=== PATIENT | male | born 1985 | race Caucasian/White ===

== ENCOUNTER 2019-06-04 10:59 | Inpatient (IN) | payer OTHER, SELFPAY ==
[2019-06-04] VITALS (10 sets, daily range): BP systolic 108–144; BP diastolic 55–86; PULSE 66–104; RESP 14–18; TEMP 36.9; O2SAT 96–100; BMI 26.4; BMI 26.2
--- NOTE | 2019-06-04 11:21 | ED.GENADULT ---
HPI - General Adult <Erin Jarrett PA-C - Last Filed: 06/04/19 20:31> General Chief complaint: Diabetic Problem Stated complaint: Hyperglycemia Time Seen by Provider: 06/04/19 11:21 Source: patient and EMS Mode of arrival: EMS Limitations: no limitations History of Present Illness HPI narrative: This 33-year-old male was sent to ED by [facility] physicians after finding elevated blood sugar on lab work. He states that he was seen at [facility] on Saturday as he has had about a 6 week history of urinary frequency, exercise intolerance/easily fatigued, dry mouth and thirst, and intermittent blurred vision. He states that he thinks he has lost 25-30 lb during that time frame, usual weight 225-230. He states that he does get some heartburn if he eats sweets, otherwise denies any chest pain. He does not feel frankly short of breath but notes exercise intolerance. He denies any abdominal pain, states he had 1 episode of vomiting on empty stomach, feels better on a full stomach. He denies any recent illnesses aside from this and states he is healthy without any known medical history. He notes that he is living near [facility] in a hotel so not able to cook and has been eating out more, more difficult to eat a healthy diet. He states he does not have any family history of diabetes aside from a single grandmother who developed this when elderly. Related Data Home Medications Medication Instructions Recorded Confirmed No Known Home Medications 06/04/19 06/04/19 Previous Rx's Medication Instructions Recorded alcohol swabs [Alcohol Wipes] 1 pad TOP QID 30 Days #100 each 06/06/19 blood sugar diagnostic [FreeStyle #150 each 06/06/19 Lite Strips] blood-glucose meter [FreeStyle #1 each 06/06/19 Lite Meter] glucose 4 gram PO Q15M PRN 30 Days #30 tab 06/06/19 insulin glargine [Lantus Solostar 20 unit SUBCUT BEDTIME 30 Days #6 06/06/19 U-100 Insulin] ml lancets #50 each 06/06/19 metformin 1,000 mg PO BID 30 Days #60 tab 06/06/19 pen needle, diabetic #30 each 06/06/19 Allergies Allergy/AdvReac Type Severity Reaction Status Date / Time cefaclor [From [facility]] Allergy Verified 06/04/19 11:05 Review of Systems <Erin Jarrett PA-C - Last Filed: 06/04/19 20:31> Review of Systems ROS Unobtainable: All systems reviewed & are unremarkable except as noted in HPI and below Patient History <Erin Jarrett PA-C - Last Filed: 06/04/19 20:31> Medical History (Updated 06/05/19 @ 00:20 by Stephenie Arrieta DO) Prehypertension (Acute) Surgical History Status post wisdom tooth extraction (Resolved) Family History (Updated 06/05/19 @ 00:22 by Stephenie Arrieta DO) Father Hypertension Mother Healthy adult Sister Autoimmune disease Sister Healthy adult Social History (Updated 06/04/19 @ 11:54 by Erin Jarrett PA-C) household members: spouse Smoking Status: Never smoker Smoking Status: Never smoker alcohol intake frequency: a few times a week Substance Use Type: does not use Exam <Erin Jarrett PA-C - Last Filed: 06/04/19 20:31> Narrative Exam Narrative: GENERAL APPEARANCE: Patient sitting comfortably, in no distress. HEENT: PERRL, EOMI, normal oropharynx NECK: Supple, no masses LUNGS: Clear to auscultation bilaterally. HEART: Rate and rhythm regular, normal S1 and S2, no S3 or S4. ABDOMEN: Soft, nontender, nondistended, bowel sounds present x 4 quadrants, no masses palpable, EXTREMITIES: No edema, no calf tenderness DERMATOLOGIC: No exanthem NEUROLOGIC: Alert and oriented with normal speech and coordination Initial Vital Signs Initial Vital Signs: Vital Signs Pulse Rate 66 06/04/19 11:00 Respiratory Rate 14 06/04/19 11:00 Blood Pressure 108/55 L 06/04/19 11:00 Pulse Oximetry 96 06/04/19 11:00 <Brenda Koehler MD - Last Filed: 06/13/19 07:17> Initial Vital Signs Initial Vital Signs: Vital Signs Pulse Rate 66 06/04/19 11:00 Respiratory Rate 14 06/04/19 11:00 Blood Pressure 108/55 L 06/04/19 11:00 Pulse Oximetry 96 06/04/19 11:00 Course <Erin Jarrett PA-C - Last Filed: 06/04/19 20:31> Course Additional Information: History, exam and lab findings reviewed with attending Dr. Koehler who has also seen patient, agrees with plan for treatment and admission. I spoke with Dr. Arrieta, neon technician hospitalist who agrees to admit patient to ICU tele for further treatment. Orders Ordered: Discontinued Medications Acetaminophen (Tylenol) 650 mg PO Q4HR PRN PRN Reason: Fever/Mild Pain (1-3) Bisacodyl (Dulcolax) 10 mg SC DAILY PRN PRN Reason: Constipation Dextrose (D50w) 25 gm IV PRN PRN; Protocol PRN Reason: Hypoglycemia Docusate Sodium (Colace) 100 mg PO BID PRN PRN Reason: Constipation Last Admin: 06/06/19 08:15 Dose: 100 mg Documented by: EDUARDALANTO Sodium Chloride (Normal Saline 0.9%) 1,000 mls @ 1,000 mls/hr IV BOLUS ONE Stop: 06/04/19 12:20 Last Infusion: 06/04/19 12:39 Dose: 0 mls/hr Documented by: Admin: 06/04/19 11:37 Dose: 1,000 mls/hr Documented by: SCANAPO Sodium Chloride (Normal Saline 0.9%) 1,000 mls @ 1,000 mls/hr IV BOLUS ONE Stop: 06/04/19 13:40 Last Infusion: 06/04/19 13:54 Dose: 0 mls/hr Documented by: Admin: 06/04/19 13:00 Dose: 1,000 mls/hr Documented by: SCANAPO INSULIN DRIP PREMIX (Myxredlin Drip Premix) 100 unit in 100 mls @ 6 mls/hr IV TITRATE TAINA; Protocol Last Titration: 06/04/19 14:28 Dose: 6 mls/hr Documented by: Admin: 06/04/19 12:56 Dose: 6 mls/hr Documented by: SCANAPO Potassium Chloride 20 meq/ (Sodium Chloride) 260 mls @ 130 mls/hr IV NOW ONE Stop: 06/04/19 14:42 Last Infusion: 06/04/19 16:01 Dose: 0 mls/hr Documented by: JEANINE Cosigned by: JOSE MANUEL Infusion: 06/04/19 14:27 Dose: 130 mls/hr Documented by: RAMO Cosigned by: ATTILA Admin: 06/04/19 13:00 Dose: 130 mls/hr Documented by: RAMO Clancyigned by: ATTILA INSULIN DRIP PREMIX (Myxredlin Drip Premix) 100 unit in 100 mls @ 6 mls/hr IV TITRATE TAINA; Protocol Last Titration: 06/04/19 22:16 Dose: 0 ml/hr, 0 mls/hr Documented by: Titration: 06/04/19 20:58 Dose: 0 ml/hr, 0 mls/hr Documented by: Titration: 06/04/19 17:00 Dose: 0 ml/hr, 0 mls/hr Documented by: Titration: 06/04/19 16:01 Dose: 7 ml/hr, 7 mls/hr Documented by: Admin: 06/04/19 15:00 Dose: 6 ml/hr, 6 mls/hr Documented by: JEANINE Potassium Chloride 40 meq/ (Sodium Chloride) 520 mls @ 130 mls/hr IV NOW ONE Stop: 06/04/19 14:33 Last Admin: 06/04/19 15:51 Dose: 130 mls/hr Documented by: JEANINE Cosigned by: JOSE MANUEL Dextrose/Sodium Chloride (Dextrose 5%-0.45% Ns) 1,000 mls @ 131 mls/hr IV CONT TAINA Last Infusion: 06/05/19 02:24 Dose: 0 mls/hr Documented by: Infusion: 06/04/19 21:00 Dose: 131 mls/hr Documented by: Infusion: 06/04/19 19:02 Dose: 0 mls/hr Documented by: Infusion: 06/04/19 18:08 Dose: 131 mls/hr Documented by: Infusion: 06/04/19 17:00 Dose: 0 mls/hr Documented by: Admin: 06/04/19 15:30 Dose: 131 mls/hr Documented by: JEANINE Dextrose (D10w) 1,000 mls @ 175 mls/hr IV CONT TAINA Stop: 06/04/19 23:59 Last Infusion: 06/04/19 18:08 Dose: 0 mls/hr Documented by: Admin: 06/04/19 17:00 Dose: 175 mls/hr Documented by: JEANINE Potassium Chloride 40 meq/ (Sodium Chloride) 520 mls @ 130 mls/hr IV NOW ONE Stop: 06/05/19 01:37 Last Infusion: 06/05/19 07:08 Dose: 0 mls/hr Documented by: DK Cosigned by: LIZBETH Admin: 06/04/19 21:57 Dose: 130 mls/hr Documented by: JEANINE Cosigned by: JOSE MANUEL Potassium Chloride 40 meq/ (Sodium Chloride) 520 mls @ 130 mls/hr IV NOW ONE Stop: 06/05/19 04:00 Last Infusion: 06/05/19 07:06 Dose: 0 mls/hr Documented by: DK Cosigned by: LIZBETH Admin: 06/05/19 02:24 Dose: 130 mls/hr Documented by: DK Cosigned by: LIZBETH Potassium Chloride 40 meq/ (Sodium Chloride) 520 mls @ 130 mls/hr IV NOW ONE Stop: 06/05/19 10:03 Last Admin: 06/05/19 07:00 Dose: 130 mls/hr Documented by: DK Cosigned by: LIZBETH Potassium Chloride 40 meq/ (Sodium Chloride) 520 mls @ 130 mls/hr IV NOW ONE Stop: 06/05/19 23:36 Last Infusion: 06/06/19 00:59 Dose: 100 mls/hr Documented by: SHER Cosigned by: YOSEPH Admin: 06/05/19 19:57 Dose: 130 mls/hr Documented by: JEANINE Cosigned by: JOSE MANUEL Potassium Chloride 40 meq/ (Sodium Chloride) 520 mls @ 130 mls/hr IV NOW ONE Stop: 06/06/19 04:59 Last Infusion: 06/06/19 06:23 Dose: 100 mls/hr Documented by: SHER Cosigned by: YOSEPH Admin: 06/06/19 00:59 Dose: 130 mls/hr Documented by: SHER Cosigned by: YOSEPH Influenza Virus Vaccine (Flu Vaccine) 0.5 ml IM .ONCE ONE Stop: 06/05/19 09:01 Last Admin: 06/05/19 08:17 Dose: 0.5 ml Documented by: EUSEBIA Insulin Aspart (Novolog Flexpen) 0 unit SUBCUT ACHS TAINA; Protocol Last Admin: 06/06/19 12:01 Dose: 2 unit Documented by: NIMO Cosigned by: EDDIE Admin: 06/06/19 08:39 Dose: 2 unit Documented by: NIMO Cosigned by: DEDIE Admin: 06/05/19 21:37 Dose: 1 unit Documented by: JEANINE Cosigned by: JOSE MANUEL Admin: 06/05/19 17:06 Dose: 2 unit Documented by: JEANINE Cosigned by: JOSE MANUEL Admin: 06/05/19 12:13 Dose: 3 unit Documented by: EUSEBIA Cosigned by: ZAID Admin: 06/05/19 08:17 Dose: 2 unit Documented by: EUSEBIA Cosigned by: ZAID Admin: 06/04/19 20:56 Dose: 1 unit Documented by: JEANINE Cosigned by: ROLAND Insulin Glargine (Lantus Solostar (Pen)) 10 unit SUBCUT BEDTIME [facility] Last Admin: 06/04/19 20:59 Dose: 10 unit Documented by: JEANINE Cosigned by: ANNABELOS Insulin Glargine (Lantus Solostar (Pen)) 15 unit SUBCUT BEDTIME TAINA Insulin Glargine (Lantus Solostar (Pen)) 20 unit SUBCUT BEDTIME [facility] Last Admin: 06/05/19 21:38 Dose: 20 unit Documented by: JEANINE Cosigned by: JOSE MANUEL Insulin Human Regular (Humulin R) 10 unit SUBCUT NOW ONE Stop: 06/05/19 12:16 Last Admin: 06/05/19 12:31 Dose: 10 unit Documented by: EUSEBIA Cosigned by: ZAID Metformin HCl (Glucophage) 1,000 mg PO 0800,1700 [facility] Last Admin: 06/06/19 08:17 Dose: 1,000 mg Documented by: Admin: 06/05/19 17:04 Dose: 1,000 mg Documented by: Admin: 06/05/19 08:17 Dose: 1,000 mg Documented by: EUSEBIA Metoclopramide HCl (Reglan) 10 mg IV Q6HR PRN PRN Reason: Nausea And Vomiting Ondansetron HCl (Zofran) 4 mg IV Q4HR PRN PRN Reason: Nausea And Vomiting Polyethylene Glycol (Miralax) 17 gm PO DAILY PRN PRN Reason: Constipation Last Admin: 06/06/19 08:15 Dose: 17 gm Documented by: ELVIETO Potassium Chloride (Klor-Con M20) 20 meq PO NOW ONE Stop: 06/04/19 21:40 Last Admin: 06/04/19 21:57 Dose: 20 meq Documented by: JEANINE Potassium Chloride (Klor-Con M20) 40 meq PO NOW ONE Stop: 06/05/19 06:03 Last Admin: 06/05/19 06:48 Dose: 40 meq Documented by: LIZBETH Potassium Chloride (Klor-Con M20) 40 meq PO NOW ONE Stop: 06/05/19 19:40 Last Admin: 06/05/19 19:54 Dose: 40 meq Documented by: JEANINE Vital Signs Vital signs: Vital Signs - 8 hr 06/04/19 13:00 Pulse Rate 92 H Blood Pressure [Left Arm] 127/77 Pulse Oximetry 100 <Brenda Koehler MD - Last Filed: 06/13/19 07:17> Orders Ordered: Discontinued Medications Acetaminophen (Tylenol) 650 mg PO Q4HR PRN PRN Reason: Fever/Mild Pain (1-3) Bisacodyl (Dulcolax) 10 mg SC DAILY PRN PRN Reason: Constipation Dextrose (D50w) 25 gm IV PRN PRN; Protocol PRN Reason: Hypoglycemia Docusate Sodium (Colace) 100 mg PO BID PRN PRN Reason: Constipation Last Admin: 06/06/19 08:15 Dose: 100 mg Documented by: EDUARDALANTO Sodium Chloride (Normal Saline 0.9%) 1,000 mls @ 1,000 mls/hr IV BOLUS ONE Stop: 06/04/19 12:20 Last Infusion: 06/04/19 12:39 Dose: 0 mls/hr Documented by: Admin: 06/04/19 11:37 Dose: 1,000 mls/hr Documented by: SCANAPO Sodium Chloride (Normal Saline 0.9%) 1,000 mls @ 1,000 mls/hr IV BOLUS ONE Stop: 06/04/19 13:40 Last Infusion: 06/04/19 13:54 Dose: 0 mls/hr Documented by: Admin: 06/04/19 13:00 Dose: 1,000 mls/hr Documented by: RAMO INSULIN DRIP PREMIX (Myxredlin Drip Premix) 100 unit in 100 mls @ 6 mls/hr IV TITRATE TAINA; Protocol Last Titration: 06/04/19 14:28 Dose: 6 mls/hr Documented by: Admin: 06/04/19 12:56 Dose: 6 mls/hr Documented by: RAMO Potassium Chloride 20 meq/ (Sodium Chloride) 260 mls @ 130 mls/hr IV NOW ONE Stop: 06/04/19 14:42 Last Infusion: 06/04/19 16:01 Dose: 0 mls/hr Documented by: JEANINE Cosigned by: JOSE MANUEL Infusion: 06/04/19 14:27 Dose: 130 mls/hr Documented by: RAMO Cosigned by: ATTILA Admin: 06/04/19 13:00 Dose: 130 mls/hr Documented by: RAMO Cosigned by: ATTILA INSULIN DRIP PREMIX (Myxredlin Drip Premix) 100 unit in 100 mls @ 6 mls/hr IV TITRATE TAINA; Protocol Last Titration: 06/04/19 22:16 Dose: 0 ml/hr, 0 mls/hr Documented by: Titration: 06/04/19 20:58 Dose: 0 ml/hr, 0 mls/hr Documented by: Titration: 06/04/19 17:00 Dose: 0 ml/hr, 0 mls/hr Documented by: Titration: 06/04/19 16:01 Dose: 7 ml/hr, 7 mls/hr Documented by: Admin: 06/04/19 15:00 Dose: 6 ml/hr, 6 mls/hr Documented by: JEANINE Potassium Chloride 40 meq/ (Sodium Chloride) 520 mls @ 130 mls/hr IV NOW ONE Stop: 06/04/19 14:33 Last Admin: 06/04/19 15:51 Dose: 130 mls/hr Documented by: JEANINE Cosigned by: JOSE MANUEL Dextrose/Sodium Chloride (Dextrose 5%-0.45% Ns) 1,000 mls @ 131 mls/hr IV CONT TAINA Last Infusion: 06/05/19 02:24 Dose: 0 mls/hr Documented by: Infusion: 06/04/19 21:00 Dose: 131 mls/hr Documented by: Infusion: 06/04/19 19:02 Dose: 0 mls/hr Documented by: Infusion: 06/04/19 18:08 Dose: 131 mls/hr Documented by: Infusion: 06/04/19 17:00 Dose: 0 mls/hr Documented by: Admin: 06/04/19 15:30 Dose: 131 mls/hr Documented by: JEANINE Dextrose (D10w) 1,000 mls @ 175 mls/hr IV CONT TAINA Stop: 06/04/19 23:59 Last Infusion: 06/04/19 18:08 Dose: 0 mls/hr Documented by: Admin: 06/04/19 17:00 Dose: 175 mls/hr Documented by: JEANINE Potassium Chloride 40 meq/ (Sodium Chloride) 520 mls @ 130 mls/hr IV NOW ONE Stop: 06/05/19 01:37 Last Infusion: 06/05/19 07:08 Dose: 0 mls/hr Documented by: DK Clancyigned by: LIZBETH Admin: 06/04/19 21:57 Dose: 130 mls/hr Documented by: JEANINE Cosigned by: JOSE MANUEL Potassium Chloride 40 meq/ (Sodium Chloride) 520 mls @ 130 mls/hr IV NOW ONE Stop: 06/05/19 04:00 Last Infusion: 06/05/19 07:06 Dose: 0 mls/hr Documented by: DK Cosigned by: LIZBETH Admin: 06/05/19 02:24 Dose: 130 mls/hr Documented by: DK Clancyigned by: LIZBETH Potassium Chloride 40 meq/ (Sodium Chloride) 520 mls @ 130 mls/hr IV NOW ONE Stop: 06/05/19 10:03 Last Admin: 06/05/19 07:00 Dose: 130 mls/hr Documented by: DK Cosigned by: LIZBETH Potassium Chloride 40 meq/ (Sodium Chloride) 520 mls @ 130 mls/hr IV NOW ONE Stop: 06/05/19 23:36 Last Infusion: 06/06/19 00:59 Dose: 100 mls/hr Documented by: SHER Cosigned by: YOSEPH Admin: 06/05/19 19:57 Dose: 130 mls/hr Documented by: JEANINE Cosigned by: JOSE MANUEL Potassium Chloride 40 meq/ (Sodium Chloride) 520 mls @ 130 mls/hr IV NOW ONE Stop: 06/06/19 04:59 Last Infusion: 06/06/19 06:23 Dose: 100 mls/hr Documented by: SHER Cosigned by: YOSEPH Admin: 06/06/19 00:59 Dose: 130 mls/hr Documented by: SHER Clancyigned by: YOSEPH Influenza Virus Vaccine (Flu Vaccine) 0.5 ml IM .ONCE ONE Stop: 06/05/19 09:01 Last Admin: 06/05/19 08:17 Dose: 0.5 ml Documented by: EUSEBIA Insulin Aspart (Novolog Flexpen) 0 unit SUBCUT ACHS TAINA; Protocol Last Admin: 06/06/19 12:01 Dose: 2 unit Documented by: NIMO Cosigned by: EDDIE Admin: 06/06/19 08:39 Dose: 2 unit Documented by: NIMO Cosigned by: EDDIE Admin: 06/05/19 21:37 Dose: 1 unit Documented by: JEANINE Cosigned by: JOSE MANUEL Admin: 06/05/19 17:06 Dose: 2 unit Documented by: JEANINE Cosigned by: JOSE MANUEL Admin: 06/05/19 12:13 Dose: 3 unit Documented by: EUSEBIA Cosigned by: ZAID Admin: 06/05/19 08:17 Dose: 2 unit Documented by: EUSEBIA Cosigned by: ZAID Admin: 06/04/19 20:56 Dose: 1 unit Documented by: JEANINE Cosigned by: ROLAND Insulin Glargine (Lantus Solostar (Pen)) 10 unit SUBCUT BEDTIME TAINA Last Admin: 06/04/19 20:59 Dose: 10 unit Documented by: JEANINE Cosigned by: ANNABELOS Insulin Glargine (Lantus Solostar (Pen)) 15 unit SUBCUT BEDTIME TAINA Insulin Glargine (Lantus Solostar (Pen)) 20 unit SUBCUT BEDTIME TAINA Last Admin: 06/05/19 21:38 Dose: 20 unit Documented by: JEANINE Cosigned by: JOSE MANUEL Insulin Human Regular (Humulin R) 10 unit SUBCUT NOW ONE Stop: 06/05/19 12:16 Last Admin: 06/05/19 12:31 Dose: 10 unit Documented by: EUSEBIA Cosigned by: ZAID Metformin HCl (Glucophage) 1,000 mg PO 0800,1700 [facility] Last Admin: 06/06/19 08:17 Dose: 1,000 mg Documented by: Admin: 06/05/19 17:04 Dose: 1,000 mg Documented by: Admin: 06/05/19 08:17 Dose: 1,000 mg Documented by: EUSEBIA Metoclopramide HCl (Reglan) 10 mg IV Q6HR PRN PRN Reason: Nausea And Vomiting Ondansetron HCl (Zofran) 4 mg IV Q4HR PRN PRN Reason: Nausea And Vomiting Polyethylene Glycol (Miralax) 17 gm PO DAILY PRN PRN Reason: Constipation Last Admin: 06/06/19 08:15 Dose: 17 gm Documented by: NIMO Potassium Chloride (Klor-Con M20) 20 meq PO NOW ONE Stop: 06/04/19 21:40 Last Admin: 06/04/19 21:57 Dose: 20 meq Documented by: JEANINE Potassium Chloride (Klor-Con M20) 40 meq PO NOW ONE Stop: 06/05/19 06:03 Last Admin: 06/05/19 06:48 Dose: 40 meq Documented by: LIZBETH Potassium Chloride (Klor-Con M20) 40 meq PO NOW ONE Stop: 06/05/19 19:40 Last Admin: 06/05/19 19:54 Dose: 40 meq Documented by: JEANINE Reevaluation(s) Reevaluation #1: Adriana patient is reviewed with Stephani Jarrett. Patient has personally seen and examined. Agree with current plan. Questions are answered. Time: 12:50 Vital Signs Vital signs: Vital Signs - 8 hr 06/04/19 13:00 Pulse Rate 92 H Blood Pressure [Left Arm] 127/77 Pulse Oximetry 100 Medical Decision Making <Erin Jarrett PA-C - Last Filed: 06/04/19 20:31> Lab Data Lab results reviewed: Yes I reviewed the patient's lab results. Result diagrams: 06/05/19 04:40 06/06/19 07:50 Labs: Lab Results 06/04/19 06/04/19 06/04/19 Range/Units 11:10 11:10 11:10 WBC 5.1 (4.5-11.0) X10^3/uL RBC 4.96 (4.5-5.9) X10^6/uL Hgb 15.6 (13.5-17.5) g/dL Hct 44.1 (41-53) % MCV 89.0 (80-100) fL MCH 31.4 (26-34) PG MCHC 35.3 (30-36) % RDW 14.4 (11.6-14.8) % Plt Count 292 (150-400) X10^3/uL Neut % (Auto) 73.5 (50-75) % Lymph % (Auto) 13.7 L (25-40) % [place] % (Auto) 11.3 (3-14) % Eos % (Auto) 0.7 L (2-4) % Baso % (Auto) 0.8 (0-2) % Neut # (Auto) 3800 (6086-9109) /uL Lymph # (Auto) 700 L (5189-8101) /uL [place] # (Auto) 600 (0-900) /uL Eos # (Auto) 0 (0-450) /uL Baso # (Auto) 0 (0-100) /uL PT 10.3 (10.1-12.7) SECONDS INR 0.9 (0.9-1.3) APTT 28 (26.4-36.2) SECONDS ABG pH (7.35-7.45) ABG pCO2 (35-45) mmHg ABG pO2 (80-100) mmHg ABG HCO3 (22-26) mmol/L ABG Total CO2 (21-31) mmol/L ABG O2 Saturation (95-100) % ABG Base Excess (-2-2) mmol/L FiO2 Sodium 136 L (137-145) mmol/L Potassium 3.1 L (3.4-5.1) mmol/L Chloride 103 (98-107) mmol/L Carbon Dioxide 10 L (22-32) mmol/L BUN 14 (9-20) mg/dL Creatinine 1.10 (0.66-1.25) mg/dL Estimated GFR > 60.0 (>60) mL/min BUN/Creatinine Ratio 12.7 (6-22) Glucose 369 H (70-100) mg/dL C-Peptide (0.80-3.85) ng/mL Calcium 9.1 (8.4-10.2) mg/dL Total Bilirubin 0.8 (0.2-1.3) mg/dL AST 16 L (17-59) IU/L ALT 16 (<50) IU/L Alkaline Phosphatase 140 H (38-126) U/L Total Protein 7.8 (6.3-8.2) g/dL Albumin 4.7 (3.5-5.0) g/dL Globulin 3.1 (1.7-4.1) g/dL Albumin/Globulin Ratio 1.5 (1.0-2.8) Lipase 246 (23-300) U/L Urine RBC (0-5/HPF) Urine WBC (0-5/HPF) Urine Bacteria (None) Ur Culture Indicated? Ketones (<0.27) mmol/L 06/04/19 06/04/19 06/04/19 Range/Units 11:40 11:40 11:50 WBC (4.5-11.0) X10^3/uL RBC (4.5-5.9) X10^6/uL Hgb (13.5-17.5) g/dL Hct (41-53) % MCV (80-100) fL MCH (26-34) PG MCHC (30-36) % RDW (11.6-14.8) % Plt Count (150-400) X10^3/uL Neut % (Auto) (50-75) % Lymph % (Auto) (25-40) % [place] % (Auto) (3-14) % Eos % (Auto) (2-4) % Baso % (Auto) (0-2) % Neut # (Auto) (2480-0168) /uL Lymph # (Auto) (7293-1942) /uL [place] # (Auto) (0-900) /uL Eos # (Auto) (0-450) /uL Baso # (Auto) (0-100) /uL PT (10.1-12.7) SECONDS INR (0.9-1.3) APTT (26.4-36.2) SECONDS ABG pH (7.35-7.45) ABG pCO2 (35-45) mmHg ABG pO2 (80-100) mmHg ABG HCO3 (22-26) mmol/L ABG Total CO2 (21-31) mmol/L ABG O2 Saturation (95-100) % ABG Base Excess (-2-2) mmol/L FiO2 Sodium (137-145) mmol/L Potassium (3.4-5.1) mmol/L Chloride (98-107) mmol/L Carbon Dioxide (22-32) mmol/L BUN (9-20) mg/dL Creatinine (0.66-1.25) mg/dL Estimated GFR (>60) mL/min BUN/Creatinine Ratio (6-22) Glucose (70-100) mg/dL C-Peptide 0.64 L (0.80-3.85) ng/mL Calcium (8.4-10.2) mg/dL Total Bilirubin (0.2-1.3) mg/dL AST (17-59) IU/L ALT (<50) IU/L Alkaline Phosphatase (38-126) U/L Total Protein (6.3-8.2) g/dL Albumin (3.5-5.0) g/dL Globulin (1.7-4.1) g/dL Albumin/Globulin Ratio (1.0-2.8) Lipase (23-300) U/L Urine RBC 1-5/hpf (0-5/HPF) Urine WBC None seen (0-5/HPF) Urine Bacteria None seen (None) Ur Culture Indicated? Cult not indicated Ketones 9.24 H (<0.27) mmol/L 06/04/19 Range/Units 12:23 WBC (4.5-11.0) X10^3/uL RBC (4.5-5.9) X10^6/uL Hgb (13.5-17.5) g/dL Hct (41-53) % MCV (80-100) fL MCH (26-34) PG MCHC (30-36) % RDW (11.6-14.8) % Plt Count (150-400) X10^3/uL Neut % (Auto) (50-75) % Lymph % (Auto) (25-40) % [place] % (Auto) (3-14) % Eos % (Auto) (2-4) % Baso % (Auto) (0-2) % Neut # (Auto) (8932-9391) /uL Lymph # (Auto) (3183-3574) /uL [place] # (Auto) (0-900) /uL Eos # (Auto) (0-450) /uL Baso # (Auto) (0-100) /uL PT (10.1-12.7) SECONDS INR (0.9-1.3) APTT (26.4-36.2) SECONDS ABG pH 7.16 L* (7.35-7.45) ABG pCO2 20.2 L* (35-45) mmHg ABG pO2 113 H (80-100) mmHg ABG HCO3 7 L (22-26) mmol/L ABG Total CO2 8 L (21-31) mmol/L ABG O2 Saturation 97 (95-100) % ABG Base Excess -21.0 L (-2-2) mmol/L FiO2 0.21 Sodium (137-145) mmol/L Potassium (3.4-5.1) mmol/L Chloride (98-107) mmol/L Carbon Dioxide (22-32) mmol/L BUN (9-20) mg/dL Creatinine (0.66-1.25) mg/dL Estimated GFR (>60) mL/min BUN/Creatinine Ratio (6-22) Glucose (70-100) mg/dL C-Peptide (0.80-3.85) ng/mL Calcium (8.4-10.2) mg/dL Total Bilirubin (0.2-1.3) mg/dL AST (17-59) IU/L ALT (<50) IU/L Alkaline Phosphatase (38-126) U/L Total Protein (6.3-8.2) g/dL Albumin (3.5-5.0) g/dL Globulin (1.7-4.1) g/dL Albumin/Globulin Ratio (1.0-2.8) Lipase (23-300) U/L Urine RBC (0-5/HPF) Urine WBC (0-5/HPF) Urine Bacteria (None) Ur Culture Indicated? Ketones (<0.27) mmol/L Point of Care Testing Glucose POC 316 Urine Dip Bedside Urine Glucose 1000 mg/dl Bedside Urine Bilirubin - Negative Bedside Urine Ketone +++ 80 Urine Specific [place] 1.025 Bedside Urine Occult Blood + Bedside Urine pH 6.0 Bedside Urine Protein + 30 Bedside Urine Urobilinogen - Negative Bedside Urine Nitrite - Negative Bedside Urine Leukocytes - Negative Esterase Point of care testing: Point of Care Testing Glucose POC 316 Urine Dip Bedside Urine Glucose 1000 mg/dl Bedside Urine Bilirubin - Negative Bedside Urine Ketone +++ 80 Urine Specific [place] 1.025 Bedside Urine Occult Blood + Bedside Urine pH 6.0 Bedside Urine Protein + 30 Bedside Urine Urobilinogen - Negative Bedside Urine Nitrite - Negative Bedside Urine Leukocytes - Negative Esterase ECG Data Attestation: I personally reviewed and interpreted this ECG as follows: (Normal sinus rhythm, rate 93, QTC prolonged 0.4, normal axis) <Brenda Koehler MD - Last Filed: 06/13/19 07:17> Lab Data Labs: Lab Results 06/04/19 06/04/19 06/04/19 Range/Units 11:10 11:10 11:10 WBC 5.1 (4.5-11.0) X10^3/uL RBC 4.96 (4.5-5.9) X10^6/uL Hgb 15.6 (13.5-17.5) g/dL Hct 44.1 (41-53) % MCV 89.0 (80-100) fL MCH 31.4 (26-34) PG MCHC 35.3 (30-36) % RDW 14.4 (11.6-14.8) % Plt Count 292 (150-400) X10^3/uL Neut % (Auto) 73.5 (50-75) % Lymph % (Auto) 13.7 L (25-40) % [place] % (Auto) 11.3 (3-14) % Eos % (Auto) 0.7 L (2-4) % Baso % (Auto) 0.8 (0-2) % Neut # (Auto) 3800 (7546-3596) /uL Lymph # (Auto) 700 L (8448-7714) /uL [place] # (Auto) 600 (0-900) /uL Eos # (Auto) 0 (0-450) /uL Baso # (Auto) 0 (0-100) /uL PT 10.3 (10.1-12.7) SECONDS INR 0.9 (0.9-1.3) APTT 28 (26.4-36.2) SECONDS ABG pH (7.35-7.45) ABG pCO2 (35-45) mmHg ABG pO2 (80-100) mmHg ABG HCO3 (22-26) mmol/L ABG Total CO2 (21-31) mmol/L ABG O2 Saturation (95-100) % ABG Base Excess (-2-2) mmol/L FiO2 Sodium 136 L (137-145) mmol/L Potassium 3.1 L (3.4-5.1) mmol/L Chloride 103 (98-107) mmol/L Carbon Dioxide 10 L (22-32) mmol/L BUN 14 (9-20) mg/dL Creatinine 1.10 (0.66-1.25) mg/dL Estimated GFR > 60.0 (>60) mL/min BUN/Creatinine Ratio 12.7 (6-22) Glucose 369 H (70-100) mg/dL C-Peptide (0.80-3.85) ng/mL Calcium 9.1 (8.4-10.2) mg/dL Total Bilirubin 0.8 (0.2-1.3) mg/dL AST 16 L (17-59) IU/L ALT 16 (<50) IU/L Alkaline Phosphatase 140 H (38-126) U/L Total Protein 7.8 (6.3-8.2) g/dL Albumin 4.7 (3.5-5.0) g/dL Globulin 3.1 (1.7-4.1) g/dL Albumin/Globulin Ratio 1.5 (1.0-2.8) Lipase 246 (23-300) U/L Urine RBC (0-5/HPF) Urine WBC (0-5/HPF) Urine Bacteria (None) Ur Culture Indicated? Ketones (<0.27) mmol/L 06/04/19 06/04/19 06/04/19 Range/Units 11:40 11:40 11:50 WBC (4.5-11.0) X10^3/uL RBC (4.5-5.9) X10^6/uL Hgb (13.5-17.5) g/dL Hct (41-53) % MCV (80-100) fL MCH (26-34) PG MCHC (30-36) % RDW (11.6-14.8) % Plt Count (150-400) X10^3/uL Neut % (Auto) (50-75) % Lymph % (Auto) (25-40) % [place] % (Auto) (3-14) % Eos % (Auto) (2-4) % Baso % (Auto) (0-2) % Neut # (Auto) (0189-0251) /uL Lymph # (Auto) (7835-1886) /uL [place] # (Auto) (0-900) /uL Eos # (Auto) (0-450) /uL Baso # (Auto) (0-100) /uL PT (10.1-12.7) SECONDS INR (0.9-1.3) APTT (26.4-36.2) SECONDS ABG pH (7.35-7.45) ABG pCO2 (35-45) mmHg ABG pO2 (80-100) mmHg ABG HCO3 (22-26) mmol/L ABG Total CO2 (21-31) mmol/L ABG O2 Saturation (95-100) % ABG Base Excess (-2-2) mmol/L FiO2 Sodium (137-145) mmol/L Potassium (3.4-5.1) mmol/L Chloride (98-107) mmol/L Carbon Dioxide (22-32) mmol/L BUN (9-20) mg/dL Creatinine (0.66-1.25) mg/dL Estimated GFR (>60) mL/min BUN/Creatinine Ratio (6-22) Glucose (70-100) mg/dL C-Peptide 0.64 L (0.80-3.85) ng/mL Calcium (8.4-10.2) mg/dL Total Bilirubin (0.2-1.3) mg/dL AST (17-59) IU/L ALT (<50) IU/L Alkaline Phosphatase (38-126) U/L Total Protein (6.3-8.2) g/dL Albumin (3.5-5.0) g/dL Globulin (1.7-4.1) g/dL Albumin/Globulin Ratio (1.0-2.8) Lipase (23-300) U/L Urine RBC 1-5/hpf (0-5/HPF) Urine WBC None seen (0-5/HPF) Urine Bacteria None seen (None) Ur Culture Indicated? Cult not indicated Ketones 9.24 H (<0.27) mmol/L 06/04/19 Range/Units 12:23 WBC (4.5-11.0) X10^3/uL RBC (4.5-5.9) X10^6/uL Hgb (13.5-17.5) g/dL Hct (41-53) % MCV (80-100) fL MCH (26-34) PG MCHC (30-36) % RDW (11.6-14.8) % Plt Count (150-400) X10^3/uL Neut % (Auto) (50-75) % Lymph % (Auto) (25-40) % [place] % (Auto) (3-14) % Eos % (Auto) (2-4) % Baso % (Auto) (0-2) % Neut # (Auto) (1056-0671) /uL Lymph # (Auto) (1769-0405) /uL [place] # (Auto) (0-900) /uL Eos # (Auto) (0-450) /uL Baso # (Auto) (0-100) /uL PT (10.1-12.7) SECONDS INR (0.9-1.3) APTT (26.4-36.2) SECONDS ABG pH 7.16 L* (7.35-7.45) ABG pCO2 20.2 L* (35-45) mmHg ABG pO2 113 H (80-100) mmHg ABG HCO3 7 L (22-26) mmol/L ABG Total CO2 8 L (21-31) mmol/L ABG O2 Saturation 97 (95-100) % ABG Base Excess -21.0 L (-2-2) mmol/L FiO2 0.21 Sodium (137-145) mmol/L Potassium (3.4-5.1) mmol/L Chloride (98-107) mmol/L Carbon Dioxide (22-32) mmol/L BUN (9-20) mg/dL Creatinine (0.66-1.25) mg/dL Estimated GFR (>60) mL/min BUN/Creatinine Ratio (6-22) Glucose (70-100) mg/dL C-Peptide (0.80-3.85) ng/mL Calcium (8.4-10.2) mg/dL Total Bilirubin (0.2-1.3) mg/dL AST (17-59) IU/L ALT (<50) IU/L Alkaline Phosphatase (38-126) U/L Total Protein (6.3-8.2) g/dL Albumin (3.5-5.0) g/dL Globulin (1.7-4.1) g/dL Albumin/Globulin Ratio (1.0-2.8) Lipase (23-300) U/L Urine RBC (0-5/HPF) Urine WBC (0-5/HPF) Urine Bacteria (None) Ur Culture Indicated? Ketones (<0.27) mmol/L Point of Care Testing Glucose POC 316 Urine Dip Bedside Urine Glucose 1000 mg/dl Bedside Urine Bilirubin - Negative Bedside Urine Ketone +++ 80 Urine Specific [place] 1.025 Bedside Urine Occult Blood + Bedside Urine pH 6.0 Bedside Urine Protein + 30 Bedside Urine Urobilinogen - Negative Bedside Urine Nitrite - Negative Bedside Urine Leukocytes - Negative Esterase Point of care testing: Point of Care Testing Glucose POC 316 Urine Dip Bedside Urine Glucose 1000 mg/dl Bedside Urine Bilirubin - Negative Bedside Urine Ketone +++ 80 Urine Specific [place] 1.025 Bedside Urine Occult Blood + Bedside Urine pH 6.0 Bedside Urine Protein + 30 Bedside Urine Urobilinogen - Negative Bedside Urine Nitrite - Negative Bedside Urine Leukocytes - Negative Esterase Discharge Plan Departure Patient Disposition: Admitted As Inpatient Clinical Impression: Diabetes mellitus with ketoacidosis Qualifiers: Diabetes mellitus type: type 1 Diabetes mellitus complication detail: without coma Qualified Code(s): E10.10 - Type 1 diabetes mellitus with ketoacidosis without coma Discharge Date/Time: 06/04/19 14:29 Instructions: Complications of Type 2 Diabetes, DI for Diabetes Type 2, Diabetes and Alcohol: Caution When Mixing, Metformin (By mouth), Insulin Glargine (By injection) Referrals: Jeet Baptiste MD [Physician] - (New diagnosis of DM, C-peptide level pending. Unclear if type I or II currently.) Admit Date/Time: 06/04/19 13:17 Admit Provider: Stephenie Arrieta
[2019-06-04 11:24] LABS: Add Manual Diff / Slide Review NO; Basophils Absolute Auto 0 /uL (0-100); Basophils Percent Auto 0.8 % (0-2); Eosinophils Absolute Auto 0 /uL (0-450); Eosinophils Percent Auto 0.7 % (2-4); Hematocrit 44.1 % (41-53); Hemoglobin 15.6 g/dL (13.5-17.5); Lymphocytes Absolute Auto 700 /uL (1100-4500); Lymphocytes Percent Auto 13.7 % (25-40); Mean Corpuscular HGB Conc 35.3 % (30-36); Mean Corpuscular Hemoglobin 31.4 PG (26-34); Monocytes Absolute Auto 600 /uL (0-900); Monocytes Percent Auto 11.3 % (3-14); Neutrophils Absolute Auto 3800 /uL (1500-7000); Neutrophils Percent Auto 73.5 % (50-75); Platelet Count 292 X10^3/uL (150-400); Red Blood Cell Count 4.96 X10^6/uL (4.5-5.9); Red Cell Distribution Width 14.4 % (11.6-14.8); White Blood Cell Count 5.1 X10^3/uL (4.5-11.0)
[2019-06-04 11:26] LABS: INR 0.9 (0.9-1.3); Prothrombin Time 10.3 SECONDS (10.1-12.7)
[2019-06-04 11:28] LABS: PTT Partial Thromboplastin Tim 28 SECONDS (26.4-36.2)
[2019-06-04 11:30] LABS: Alanine Aminotransferase 16 IU/L (<50); Albumin 4.7 g/dL (3.5-5.0); Albumin Globulin Ratio 1.5 (1.0-2.8); Alkaline Phosphatase 140 U/L (38-126); Aspartate Aminotransferase 16 IU/L (17-59); BUN Creatinine Ratio 12.7 (6-22); Bilirubin Total 0.8 mg/dL (0.2-1.3); Blood Urea Nitrogen 14 mg/dL (9-20); Calcium 9.1 mg/dL (8.4-10.2); Carbon Dioxide 10 mmol/L (22-32); Chloride 103 mmol/L (98-107); Estimated Glomerular Filt Rate > 60.0 mL/min (>60); Globulin 3.1 g/dL (1.7-4.1); Glucose 369 mg/dL (70-100); HEMOLYSIS < 15 (0-50); Lipase 246 U/L (23-300); Potassium 3.1 mmol/L (3.4-5.1); Sodium 136 mmol/L (137-145); Total Protein 7.8 g/dL (6.3-8.2)
[2019-06-04] MEDS: SODIUM CHLORIDE 0.9% 1,000 ML 1000 ML IV ×2 (11:37→13:00)
[2019-06-04 11:47] LABS: Bacteria Urine None Seen; WBC Urine None Seen (0-5/HPF)
[2019-06-04 11:55] LABS: Culture Indicated Urine Cult Not Indicated; RBC Urine 1-5/HPF (0-5/HPF)
[2019-06-04 12:09] LABS: Ketones (Beta-Hydroxybutyrate) 9.24 mmol/L (<0.27)
[2019-06-04 12:48] LABS: HCO3 ABG 7 mmol/L (22-26); PCO2 ABG 20.2 mmHg (35-45); PO2 ABG 113 mmHg (80-100); TCO2 ABG 8 mmol/L (21-31); pH ABG 7.16 (7.35-7.45)
[2019-06-04 12:49] LABS: Fractionated Inspired Oxygen 0.21; Oxygen Saturation ABG 97 % (95-100)
[2019-06-04] MEDS: INSULIN DRIP PREMIX 100 UNIT/100 ML PLAST..BAG 6 UNIT IV ×2 (12:56→15:00)
[2019-06-04] MEDS: POTASSIUM CHLORIDE 20 MEQ in SODIUM CHLORIDE 0.9% 250 ML 130 ML IV (13:00)
--- NOTE | 2019-06-04 15:22 | PC.NURSE ---
Rec'd pt from ED at 1415 via stretcher with insulin infusing. Pt stood and self transferred to bed. Gait is steady. AO x3 and able to make needs known. Admission assessment completed. Oriented pt to room and routine. Brief teaching re plan of care done. Pt verbalizes understanding. Educated to fall risk, use of call light.
[2019-06-04] MEDS: DEXTROSE 5%-0.45% NS 1,000 ML 131 ML IV (15:30)
[2019-06-04 15:39] LABS: BUN Creatinine Ratio 13.3 (6-22); Blood Urea Nitrogen 12 mg/dL (9-20); Calcium 8.3 mg/dL (8.4-10.2); Carbon Dioxide 11 mmol/L (22-32); Chloride 112 mmol/L (98-107); Estimated Glomerular Filt Rate > 60.0 mL/min (>60); Glucose 177 mg/dL (70-100); HEMOLYSIS < 15 (0-50); Potassium 2.8 mmol/L (3.4-5.1); Sodium 139 mmol/L (137-145)
[2019-06-04] MEDS: POTASSIUM CHLORIDE 40 MEQ in SODIUM CHLORIDE 0.9% 500 ML 130 ML IV ×2 (15:51→21:57)
--- NOTE | 2019-06-04 16:27 | PC.NURSE ---
Addendum entered by Catherine Hong R.N. 06/04/19 22:04: 2200- Electrolytes Called to hospitalist orders rec. Latricia 40MEQ running at 130ml per order. Lantus and Novolog started at 9pm per order. Patient given teaching material to read at his leisure. Insulin gtt is off as of 9pm. Stable at this time. Original Note: 1600- Dicussed lab result with Dr. Arrieta. Latricia up per orders. IVF D5.45 at 131 per hour. Patient states he is in no distress and he denies pain at this time. Repirations are even and unlabored. Insulin gtt infusion per order. Will monitor.
[2019-06-04] MEDS: DEXTROSE 10 % IN WATER 1,000 ML 175 ML IV (17:00)
[2019-06-04 17:11] LABS: Hemoglobin A1C% w Est Avg Glu 11.4 % (4.0-6.0)
--- NOTE | 2019-06-04 18:01 | P.HP_ITS ---
History of Present Illness History of Present Illness Date Patient Seen: 06/04/19 Chief complaint: Hyperglycemia Narrative: Madhu Tatum is a 33-year-old male with a past medical history significant for high blood pressure otherwise healthy who presented to the ED at the discretion of his primary care provider [facility] due to elevated blood glucose. The patient reports a month and a half of excessive thirst, constant dry mouth, urinary frequency, fatigue and lethargy, weakness, and intermittent blurred vision. Has also had early satiety with nausea and vomiting. He reports he has had 30 lbs unintentional weight loss since the end of March to present date. He states that he had a head cold in early March and a stomach virus right after that and is unsure if those were due to diabetes or related to current presentation. He has never had elevated glucose prior to this that he is aware of and had lab work performed in January of this year for which he was told was normal. He currently denies headache, chest pain, shortness of breath (but notes that he was breathing harder when he first presented to the ED), abdominal pain, nausea, vomiting, fever, chills (present on admission and have resolved), dysuria, diarrhea or constipation. He is healthy without any known medical history other than elevated blood pressure. His paternal grandmother has diabetes diagnosed in her 60's otherwise there are no other family member with history of diabetes. In the ED, the patient was found to have elevated glucose of 369, AG 23, potassium 4.2, ketones 9.24, and ABG which demonstrated metabolic acidosis with partial respiratory compensation: pH 7.16, PCO2 20.2, PO2 113, HCO3 7, SpO2 97 % on FiO2 0.21. He was given potassium IV, IVF, and started on insulin gtt. He was admitted inpatient to ICU for further evaluation and treatment of DKA. Patient History Medical History (Updated 06/05/19 @ 00:20 by Stephenie Arrieta DO) Prehypertension (Acute) Surgical History Status post wisdom tooth extraction (Resolved) Family & Social History Family History (Updated 06/05/19 @ 00:22 by Stephenie Arrieta DO) Father Hypertension Mother Healthy adult Sister Autoimmune disease Sister Healthy adult Social History: household members spouse Safety & Behavioral: Feels Safe in Current Yes Environment Been Physically Hurt or No Threatened By a Person Suicidal Ideation Description None Suicide Plan Description No Plan Tobacco & Substance use: Smoking Status Former smoker alcohol intake frequency a few times a month Substance Use Type does not use The patient is x 4 years but has been with his spouse for 11 years total. He has 2 step children and no biological children. He drinks 3-4 mixed drinks a week and occasionally binge drinks. He does not use recreational drugs. He is a former smoker quit 13 years ago and smoked 0.25 ppd x 10 years. Meds Home Medications and Allergies Home Medications Medication Instructions Recorded Confirmed Type No Known Home Medications 06/04/19 06/04/19 History Allergies Allergy/AdvReac Type Severity Reaction Status Date / Time cefaclor [From [facility]] Allergy Verified 06/04/19 11:05 Review of Systems Review of Systems Narrative: A 10 system comprehensive review of systems was conducted with the patient and found to be negative except as above in the History of Present Illness. Exam Vital Signs (past 8 hours): - 06/04/19 11:00 06/04/19 11:05 06/04/19 12:00 Temperature 98.5 F Pulse Rate 66 101 H 92 H Respiratory Rate 14 15 Blood Pressure 144/86 H Blood Pressure [Left Arm] 108/55 L 134/78 Pulse Oximetry 96 100 100 06/04/19 13:00 06/04/19 14:07 06/04/19 14:15 Temperature Pulse Rate 92 H 91 H 94 H Respiratory Rate 15 Blood Pressure 124/73 Blood Pressure [Left Arm] 127/77 120/70 Pulse Oximetry 100 100 100 06/04/19 15:00 06/04/19 16:00 Temperature Pulse Rate 90 91 H Respiratory Rate 18 Blood Pressure 126/67 112/65 Blood Pressure [Left Arm] Pulse Oximetry 100 Oxygen Delivery Method Room Air Oxygen Flow Rate 0 Narrative Exam Narrative: General: Young man sitting in bed, in no acute distress, well-developed, well- nourished, appropriately interactive. HEENT: Normocephalic, atraumatic. External ears without defect. Pupils equal, round, and reactive to light. Anicteric sclerae, moist conjunctivae, and no lid lag. Oropharynx free of erythema and cobble stoning with moist mucosa. Neck: Supple with full range of motion. No jugular venous distension. No lymphadenopathy or thyromegaly. Cardiovascular: Regular rhythm, tachycardic, without murmurs, rubs, or gallops appreciated Pulmonary: Clear to auscultation bilaterally without crackles, wheezes, or rhonchi. Normal respiratory effort with no use of accessory muscles. Abdomen: Soft, bowel sounds present, nontender, nondistended. No hep atosplenomegaly or masses appreciated. Extremities: No clubbing, cyanosis, or edema. Skin: Normal temperature, turgor, and texture; no rash, ulcers, or subcutaneous nodules appreciated. Neurological: Cranial nerves grossly intact. Normal muscle strength, tone, and bulk. Reflexes, coordination, and sensory function within normal limits. No known gait impairment. Psychiatric: Normal mood and affect. Alert and oriented to person, place, and time. Objective Labs Result Diagrams: 06/05/19 04:40 06/05/19 04:40 Labs: Laboratory Results - last 24 hr 06/04/19 06/04/19 06/04/19 11:10 11:10 11:10 WBC 5.1 RBC 4.96 Hgb 15.6 Hct 44.1 MCV 89.0 MCH 31.4 MCHC 35.3 RDW 14.4 Plt Count 292 Neut % (Auto) 73.5 Lymph % (Auto) 13.[address] [place] % (Auto) 11.3 Eos % (Auto) 0.7 L Baso % (Auto) 0.8 Neut # (Auto) 3800 Lymph # (Auto) [address] [place] # (Auto) 600 Eos # (Auto) 0 Baso # (Auto) 0 PT 10.3 INR 0.9 APTT 28 ABG pH ABG pCO2 ABG pO2 ABG HCO3 ABG Total CO2 ABG O2 Saturation ABG Base Excess FiO2 Sodium 136 L Potassium 3.1 L Chloride 103 Carbon Dioxide 10 L BUN 14 Creatinine 1.10 Estimated GFR > 60.0 BUN/Creatinine Ratio 12.7 Glucose 369 H Calcium 9.1 Total Bilirubin 0.8 AST 16 L ALT 16 Alkaline Phosphatase 140 H Total Protein 7.8 Albumin 4.7 Globulin 3.1 Albumin/Globulin Ratio 1.5 Lipase 246 Urine RBC Urine WBC Urine Bacteria Ur Culture Indicated? Nasal Screen MRSA (PCR) Ketones 06/04/19 06/04/19 06/04/19 11:40 11:50 12:23 WBC RBC Hgb Hct MCV MCH MCHC RDW Plt Count Neut % (Auto) Lymph % (Auto) [place] % (Auto) Eos % (Auto) Baso % (Auto) Neut # (Auto) Lymph # (Auto) [place] # (Auto) Eos # (Auto) Baso # (Auto) PT INR APTT ABG pH 7.16 L* ABG pCO2 20.2 L* ABG pO2 113 H ABG HCO3 7 L ABG Total CO2 8 L ABG O2 Saturation 97 ABG Base Excess -21.0 L FiO2 0.21 Sodium Potassium Chloride Carbon Dioxide BUN Creatinine Estimated GFR BUN/Creatinine Ratio Glucose Calcium Total Bilirubin AST ALT Alkaline Phosphatase Total Protein Albumin Globulin Albumin/Globulin Ratio Lipase Urine RBC 1-5/hpf Urine WBC None seen Urine Bacteria None seen Ur Culture Indicated? Cult not indicated Nasal Screen MRSA (PCR) Ketones 9.24 H 06/04/19 06/04/19 14:30 15:20 WBC RBC Hgb Hct MCV MCH MCHC RDW Plt Count Neut % (Auto) Lymph % (Auto) [place] % (Auto) Eos % (Auto) Baso % (Auto) Neut # (Auto) Lymph # (Auto) [place] # (Auto) Eos # (Auto) Baso # (Auto) PT INR APTT ABG pH ABG pCO2 ABG pO2 ABG HCO3 ABG Total CO2 ABG O2 Saturation ABG Base Excess FiO2 Sodium 139 Potassium 2.8 L Chloride 112 H Carbon Dioxide 11 L BUN 12 Creatinine 0.90 Estimated GFR > 60.0 BUN/Creatinine Ratio 13.3 Glucose 177 H D Calcium 8.3 L Total Bilirubin AST ALT Alkaline Phosphatase Total Protein Albumin Globulin Albumin/Globulin Ratio Lipase Urine RBC Urine WBC Urine Bacteria Ur Culture Indicated? Nasal Screen MRSA (PCR) Negative for mrsa Ketones Assessment & Plan Assessment & Plan narrative: Madhu Tatum is a 33-year-old male with a past medical history significant for high blood pressure otherwise healthy who presented to the ED at the discretion of his primary care provider at the [facility] due to elevated blood glucose. 1. Acute diabetic ketoacidosis with newly diagnosed diabetes mellitus likely type 2, present on admission. Resolved. -Hemoglobin A1c 11.4%. The patient is a newly diagnosed diabetic. -Initial blood glucose 369. Serum ketones 9.24. Anion Gap 23. Potassium 3.1. ABG which demonstrated metabolic acidosis with partial respiratory compensation: pH 7.16, PCO2 20.2, PO2 113, HCO3 7, SpO2 97 % on FiO2 0.21. -Received potassium chloride 20 mEq, 1 L NS and started on IVF, and started on insulin gtt at 0.1 units/kg in ED. -Chest x-ray did not demonstrate any acute cardiopulmonary process. Respiratory viral PCR negative. Urinalysis did not appear to be infected. -Initiated DKA protocol with insulin gtt, fluid replacement with normal saline then transitioned to 0.45% normal saline and then D5 0.45% normal saline until blood glucose was less than 250. Monitored blood glucose and electrolytes every 4 hours until anion gap closed and continue to replete as necessary. Transitioned off insulin gtt and started basal insulin. -Start Lantus 10 units daily at bedtime. -Continue ACHS blood glucose checks and low dose correctional scale insulin. -Plan to have nursing staff educate him regarding insulin use. -Ordered senior quantity surveyor consult, pending. -Ordered C-peptide which is a send out and pending. 2. History of elevated blood pressure. -Patient reports history of elevated blood pressure likely pre hypertension versus hypertension that is controlled with lifestyle modification including diet and exercise. -Continue to monitor blood pressure closely and treat if necessary. Critical care time spent: 60 minutes Patient is admitted under inpatient status with expected length of stay greater than 2 midnights due to severity of presenting symptoms, risk of adverse event, and complexity of treatment plan.
[2019-06-04] MEDS: INSULIN ASPART 100 UNIT/ML INSULN PEN SUBCUT (20:56)
[2019-06-04] MEDS: INSULIN GLARGINE 100 UNIT/ML 3ML PEN 10 UNIT SUBCUT (20:59)
[2019-06-04 21:22] LABS: BUN Creatinine Ratio 17.1 (6-22); Blood Urea Nitrogen 12 mg/dL (9-20); Calcium 8.6 mg/dL (8.4-10.2); Carbon Dioxide 14 mmol/L (22-32); Chloride 111 mmol/L (98-107); Estimated Glomerular Filt Rate > 60.0 mL/min (>60); Glucose 162 mg/dL (70-100); Sodium 135 mmol/L (137-145)
[2019-06-04 21:27] LABS: HEMOLYSIS < 15 (0-50)
[2019-06-04 21:29] LABS: Potassium 2.7 mmol/L (3.4-5.1)
[2019-06-04 21:45] LABS: Magnesium 2.1 mg/dL (1.6-2.3)
[2019-06-04] MEDS: POTASSIUM CHLORIDE 20 MEQ TAB PO (21:57)
[2019-06-05 01:05] VITALS: BP 108/68; PULSE 84; RESP 10; TEMP 36.7; O2SAT 99
[2019-06-05 01:18] LABS: Albumin 3.1 g/dL (3.5-5.0); BUN Creatinine Ratio 15.7 (6-22); Blood Urea Nitrogen 11 mg/dL (9-20); Calcium 8.2 mg/dL (8.4-10.2); Carbon Dioxide 15 mmol/L (22-32); Chloride 106 mmol/L (98-107); Estimated Glomerular Filt Rate > 60.0 mL/min (>60); Glucose 238 mg/dL (70-100); HEMOLYSIS < 15 (0-50); Magnesium 1.9 mg/dL (1.6-2.3); Phosphorous 2.6 mg/dL (2.5-4.5); Potassium 2.8 mmol/L (3.4-5.1); Sodium 133 mmol/L (137-145)
[2019-06-05] MEDS: POTASSIUM CHLORIDE 40 MEQ in SODIUM CHLORIDE 0.9% 500 ML 130 ML IV ×3 (02:24→19:57)
[2019-06-05 04:54] VITALS: BP 108/68; PULSE 84; RESP 10; TEMP 36.7; O2SAT 99
[2019-06-05 05:38] LABS: Add Manual Diff / Slide Review NO; Alanine Aminotransferase 12 IU/L (<50); Albumin 3.2 g/dL (3.5-5.0); Albumin Globulin Ratio 1.4 (1.0-2.8); Alkaline Phosphatase 84 U/L (38-126); Aspartate Aminotransferase 13 IU/L (17-59); BUN Creatinine Ratio 14.3 (6-22); Basophils Absolute Auto 100 /uL (0-100); Basophils Percent Auto 1.1 % (0-2); Bilirubin Total 0.5 mg/dL (0.2-1.3); Blood Urea Nitrogen 10 mg/dL (9-20); Calcium 8.5 mg/dL (8.4-10.2); Carbon Dioxide 16 mmol/L (22-32); Chloride 108 mmol/L (98-107); Eosinophils Absolute Auto 100 /uL (0-450); Estimated Glomerular Filt Rate > 60.0 mL/min (>60); Globulin 2.3 g/dL (1.7-4.1); Glucose 222 mg/dL (70-100); HDL Cholesterol 31 mg/dL (40-60); HEMOLYSIS < 15 (0-50); Hematocrit 34.3 % (41-53); Hemoglobin 12.1 g/dL (13.5-17.5); Lymphocytes Absolute Auto 1400 /uL (1100-4500); Lymphocytes Percent Auto 28.3 % (25-40); Mean Corpuscular HGB Conc 35.4 % (30-36); Mean Corpuscular Hemoglobin 31.1 PG (26-34); Mean Corpuscular Volume 87.9 fL (80-100); Monocytes Absolute Auto 600 /uL (0-900); Neutrophils Absolute Auto 2700 /uL (1500-7000); Neutrophils Percent Auto 56.6 % (50-75); Platelet Count 219 X10^3/uL (150-400); Red Cell Distribution Width 14.2 % (11.6-14.8); Sodium 133 mmol/L (137-145); Total Protein 5.5 g/dL (6.3-8.2); White Blood Cell Count 4.8 X10^3/uL (4.5-11.0)
[2019-06-05 05:48] LABS: Cholesterol 335 mg/dL (140-199)
[2019-06-05 05:50] LABS: Triglycerides 650 mg/dL (35-150)
[2019-06-05 06:26] LABS: Magnesium 2.1 mg/dL (1.6-2.3)
[2019-06-05 06:44] LABS: Procalcitonin 0.06 ng/mL (<0.5)
[2019-06-05] MEDS: POTASSIUM CHLORIDE 20 MEQ TAB 40 MEQ PO ×2 (06:48→19:54)
[2019-06-05 07:39] VITALS: BP 113/70; PULSE 85; RESP 16; TEMP 36.8; O2SAT 100
[2019-06-05] MEDS: INSULIN ASPART 100 UNIT/ML INSULN PEN SUBCUT ×4 (08:17→21:37)
[2019-06-05] MEDS: INFLUENZA VACCINE 0.5 ML SYRINGE IM (08:17)
[2019-06-05] MEDS: METFORMIN HCL 500 MG TABLET 1000 MG PO ×2 (08:17→17:04)
--- NOTE | 2019-06-05 10:17 | PC.NURSE ---
Addendum entered by Elpidio Montenegro R.N. 06/05/19 12:46: Provided teaching regarding drawing up insulin from vial and administering with syringe. Pt provided verbal teach back and demonstrated proper technique. Original Note: 0815- Educated pt re metformin and novolog. Provided written information on metformin. Formal education completed regarding sub q insulin administration, sliding scale, BG check. Pt self administered novolog per correctional algorithm demonstrating understanding. Pt expresses being overwhelmed with dx and information. Provided reassurance and emotional support.
[2019-06-05 12:00] VITALS: BP 112/72; PULSE 96; RESP 16; TEMP 36.6; O2SAT 99
[2019-06-05] MEDS: INSULIN REGULAR 100 UNIT/ML 3 ML VIAL 10 UNIT SUBCUT (12:31)
--- NOTE | 2019-06-05 14:18 | CM.DANOTE ---
DCP Brief Assessment Note Patient is a 33 year old male who was admitted on 06/04/19 for Hyperglycemia. Pt has [employer] for insurance and his PCP is on the [facility]. EMR was reviewed. Per MD, pt with new dx of diabetes and had DKA with elevated glucose levels with an accidental 30 lb weight loss in a couple months. Dietary order placed for teaching and education on his new dx and pending. Per RN, completed teaching on insulin and blood sugars. Patient resides in [place] currently and has spouse and 2 step children and uses alcohol at baseline. Bedside assessment not completed at this time due to triage needs. Plan: SW to follow closely for likely pt d/c home when medically stable and after dietary teaching and discussion regarding his new diabetes dx. SW to follow for any further identified discharge planning needs. DAHIANA Garcia
--- NOTE | 2019-06-05 14:47 | DIET.PN ---
Dietary Progress Note Assessment: Mr Tatum is a 33-year-old male with a past medical history of high blood pressure, but otherwise healthy who presented to the ED for elevated blood glucose. The patient reports 6 weeks excessive thirst, constant dry mouth, urinary frequency, fatigue and lethargy, weakness, and intermittent blurred vision. Has also had early satiety with nausea and vomiting. He reports a 30 lb unintentional weight loss since the end of March. He was recently deployed and questions whether lifestyle and food choices there triggered his onset of complications. He reports he has never been told he has diabetes. HT: 182.88cm WT: 87.5kg UBW: 101kg %change: 13 BMI: 26.2 Labs: A1c: 11.4 Gluc: 162,238,222 Chol: 335 Tr Serum Ketone: 9.24 Anion Gap: 23 C-Peptide: pending MNA: 7 Steve: 21 Nutrition Diagnosis: 1. Acute on chronic illness severe PCM r/t alteration in GI fxn aeb energy intake <75% EER > 1mo, GI symptoms (N/V) > 2 weeks, weight loss > 5% in 1 mo, recent dx diabetes 2. Altered Nutrition related labs related to impaired glucose metabolism, lack of previous exposure to accurate nutrition information as evidenced by pt report, dx of diabetes, previous diet high in refined carbohydrates.? Interventions: 1. Discussed pathophysiology of diabetes. Reviewed A1c and its correlation to blood glucose numbers. Discussed recommended BG ranges. 2. Discussed importance of self-monitoring, how often, and when to check. 3. Reviewed hyper/hypoglycemia and treatment. 6. Discussed impact of nutrition/diet on blood sugar control.? Discussed fed versus non-fed state.?? 7. Discussed the effect of carbohydrates/protein/fat on blood sugar control.? Stressed importance of consistent carbohydrate intake at each meal and provided instructions for recommended servings/portions of carbohydrates/protein per meal. Provided pt with educational material. 8. Reviewed carbohydrate counting and measuring carbohydrate content via serving sizes and reading nutrition labels.? Provided handouts.?? 9. Stressed importance of meal timing and not going >4-5 hours between meals. Encouraged adding protein to each meal to support glucose control. Provided list of protein foods. Discussed best protein options for heart health and to alleviate hunger. Patient agreeable. 10. Discussed healthy weight loss through diet and exercise to increase lean muscle mass.? Pt agreeable to exercise once he feels better and has energy. Diet Order: CCD 2 EER: 2300 vidhi @ 30 vidhi/kg IBW ; Pro: 100-116 g @ 1.3-1.5 g/kg Monitoring/Evaluations: Weight, PO's, diet tolerance. Recommended pt for outpatient diabetes education program and medical nutrition therapy.
[2019-06-05 16:00] VITALS: BP 151/77; PULSE 92; RESP 18; TEMP 36.8; O2SAT 98
--- NOTE | 2019-06-05 18:20 | P.PN_ITS ---
Subjective Subjective Date Patient Seen: 06/05/19 Interval history: Madhu Tatum is a 33-year-old male with a past medical history significant for high blood pressure otherwise healthy who presented to the ED [facility] the [facility] elevated blood glucose. The patient is resting in bed comfortably. He reports he feels much better than yesterday. He no longer has any nausea or indigestion. He reports he no longer feels short of breath and is not breathing hard. Discussed diabetes mellitus in significant detail and educated the patient regarding management of diabetes, diabetic diet and nutrition, hypoglycemia and hypoglycemic emergencies, and DKA. Recommended he keep track of his blood glucose and diet in a journal. He is voiding without difficulty. He feels mildly constipated and has not had a bowel movement since Saturday and a bowel regimen has been implemented. He is up ambulating independently without assistance. Exam Vital Signs (past 8 hours): - 06/05/19 12:00 06/05/19 16:00 Temperature 97.8 F 98.3 F Pulse Rate 96 H 92 H Respiratory Rate 16 18 Blood Pressure 112/72 151/77 H Pulse Oximetry 99 98 Oxygen Delivery Method Room Air Oxygen Flow Rate 0 Narrative Exam Narrative: General: Young man sitting in bed, in no acute distress, well-developed, well- nourished, appropriately interactive. HEENT: Normocephalic, atraumatic. External ears without defect. Pupils equal, round, and reactive to light. Anicteric sclerae, moist conjunctivae, and no lid lag. Neck: Supple with full range of motion. No jugular venous distension. No lymphadenopathy or thyromegaly. Cardiovascular: Regular rhythm and rate without murmurs, rubs, or gallops appreciated. Pulmonary: Clear to auscultation bilaterally without crackles, wheezes, or rhonchi. Normal respiratory effort with no use of accessory muscles. Abdomen: Soft, bowel sounds present, nontender, nondistended. No hepatosplenomegaly or masses appreciated. Extremities: No clubbing, cyanosis, or edema. Skin: Normal temperature, turgor, and texture; no rash, ulcers, or subcutaneous nodules appreciated. Neurological: Cranial nerves grossly intact. Normal muscle strength, tone, and bulk. Reflexes, coordination, and sensory function within normal limits. No known gait impairment. Psychiatric: Normal mood and flat affect. Alert and oriented to person, place, and time. Objective Labs Result Diagrams: 06/05/19 04:40 06/05/19 04:40 Labs: Laboratory Results - last 24 hr 06/04/19 06/04/19 06/05/19 21:00 21:06 00:58 WBC RBC Hgb Hct MCV MCH MCHC RDW Plt Count Neut % (Auto) Lymph % (Auto) [facility] % (Auto) Eos % (Auto) Baso % (Auto) Neut # (Auto) Lymph # (Auto) [facility] # (Auto) Eos # (Auto) Baso # (Auto) Sodium 135 L 133 L Potassium 2.7 L* 2.8 L Chloride 111 H 106 Carbon Dioxide 14 L 15 L BUN 12 11 Creatinine 0.70 0.70 Estimated GFR > 60.0 > 60.0 BUN/Creatinine Ratio 17.1 15.7 Glucose 162 H 238 H Calcium 8.6 8.2 L Phosphorus 2.6 Magnesium 2.1 1.9 Total Bilirubin AST ALT Alkaline Phosphatase Total Protein Albumin 3.1 L Globulin Albumin/Globulin Ratio Triglycerides Cholesterol LDL Cholesterol, Calc HDL Cholesterol Procalcitonin 06/05/19 06/05/19 06/05/19 04:40 04:40 04:40 WBC 4.8 RBC 3.90 L Hgb 12.1 L Hct 34.3 L MCV 87.9 MCH 31.1 MCHC 35.4 RDW 14.2 Plt Count 219 Neut % (Auto) 56.6 Lymph % (Auto) 28.3 [facility] % (Auto) 12.0 Eos % (Auto) 2.0 Baso % (Auto) 1.1 Neut # (Auto) 2700 Lymph # (Auto) 1400 [facility] # (Auto) 600 Eos # (Auto) 100 Baso # (Auto) 100 Sodium 133 L Potassium 3.0 L Chloride 108 H Carbon Dioxide 16 L BUN 10 Creatinine 0.70 Estimated GFR > 60.0 BUN/Creatinine Ratio 14.3 Glucose 222 H Calcium 8.5 Phosphorus Magnesium 2.1 Total Bilirubin 0.5 AST 13 L ALT 12 Alkaline Phosphatase 84 D Total Protein 5.5 L Albumin 3.2 L Globulin 2.3 Albumin/Globulin Ratio 1.4 Triglycerides 650 H Cholesterol 335 H LDL Cholesterol, Calc TNP HDL Cholesterol 31 L Procalcitonin 0.06 Assessment & Plan Assessment & Plan narrative: Madhu Tatum is a 33-year-old male with a past medical history significant for high blood pressure otherwise healthy who presented to the ED [facility] the [facility] blood glucose. 1. Acute diabetic ketoacidosis with newly diagnosed diabetes mellitus likely type 2, present on admission. Resolved. -Hemoglobin A1c 11.4%. The patient is a newly diagnosed diabetic. -Initial blood glucose 369. Serum ketones 9.24. Anion Gap 23. Potassium 3.1. ABG which demonstrated metabolic acidosis with partial respiratory compensation: pH 7.16, PCO2 20.2, PO2 113, HCO3 7, SpO2 97 % on FiO2 0.21. -Received potassium chloride 20 mEq, 1 L NS and started on IVF, and started on insulin gtt at 0.1 units/kg in ED. -Chest x-ray did not demonstrate any acute cardiopulmonary process. Respiratory viral PCR negative. Urinalysis did not appear to be infected. -Initiated DKA protocol with insulin gtt, fluid replacement with normal saline then transitioned to 0.45% normal saline and then D5 0.45% normal saline until blood glucose was less than 250. Monitored blood glucose and electrolytes every 4 hours until anion gap closed and continued to replete as necessary. Transitioned off insulin gtt and started basal insulin. -Continue Lantus increased from 10 units to 20 units daily at bedtime for tighter glycemic control and metformin 1000 mg twice daily with meals.. -Continue ACHS blood glucose checks and low dose correctional scale insulin. -Plan to have nursing staff educate him regarding insulin and glucometer use. -Consulted dietitian and we appreciate her time and recommendations. Recommend outpatient Diabetic Self Management Education (DSME). -Ordered C-peptide which is a send out and pending. -Discussed diabetes mellitus in detail and provided education regarding management of the disease, diabetic diet and nutrition, hypoglycemia and hypoglycemic emergencies, and DKA. 2. History of elevated blood pressure. -Patient reports history of elevated blood pressure likely pre-hypertension versus hypertension that has been controlled with lifestyle modification including diet and exercise. -Continue to monitor blood pressure closely and treat if necessary. Patient has had an occasional high blood pressure measurement but otherwise controlled. Disposition: Patient likely to discharge home in 1-2 days once blood glucose has been controlled with above interventions.
[2019-06-05 19:03] LABS: Blood Urea Nitrogen 8 mg/dL (9-20); Calcium 8.8 mg/dL (8.4-10.2); Carbon Dioxide 19 mmol/L (22-32); Chloride 98 mmol/L (98-107); Estimated Glomerular Filt Rate > 60.0 mL/min (>60); Glucose 276 mg/dL (70-100); HEMOLYSIS < 15 (0-50); Potassium 2.9 mmol/L (3.4-5.1); Sodium 130 mmol/L (137-145)
[2019-06-05] MEDS: INSULIN GLARGINE 100 UNIT/ML 3ML PEN 20 UNIT SUBCUT (21:38)
[2019-06-06 00:50] VITALS: BP 123/73; PULSE 85; RESP 18; TEMP 36.5; O2SAT 99
[2019-06-06] MEDS: POTASSIUM CHLORIDE 40 MEQ in SODIUM CHLORIDE 0.9% 500 ML 130 ML IV (00:59)
[2019-06-06 08:00] VITALS: BP 117/71; PULSE 81; RESP 18; TEMP 37.1; O2SAT 98
[2019-06-06 08:07] LABS: Blood Urea Nitrogen 6 mg/dL (9-20); Calcium 8.9 mg/dL (8.4-10.2); Carbon Dioxide 20 mmol/L (22-32); Chloride 102 mmol/L (98-107); Estimated Glomerular Filt Rate > 60.0 mL/min (>60); Glucose 211 mg/dL (70-100); HEMOLYSIS < 15 (0-50); Potassium 2.8 mmol/L (3.4-5.1); Sodium 135 mmol/L (137-145)
[2019-06-06] MEDS: DOCUSATE 100 MG CAPSULE PO (08:15)
[2019-06-06] MEDS: POLYETHYLENE GLYCOL 3350 17 GM POWD.PACK PO (08:15)
[2019-06-06] MEDS: METFORMIN HCL 500 MG TABLET 1000 MG PO (08:17)
[2019-06-06] MEDS: INSULIN ASPART 100 UNIT/ML INSULN PEN SUBCUT ×2 (08:39→12:01)
--- NOTE | 2019-06-06 11:12 | P.DS_ITS ---
History of Present Illness History of Present Illness Date Patient Seen: 06/06/19 Time Patient Seen: 10:30 Chief complaint: Hyperglycemia Narrative: As per Dr. Arrieta Madhu Tatum is a 33-year-old male with a past medical history significant for high blood pressure otherwise healthy who presented to the ED at the discretion of his primary care provider at the [facility] due to elevated blood glucose. The patient reports a month and a half of excessive thirst, constant dry mouth, urinary frequency, fatigue and lethargy, weakness, and intermittent blurred vision. Has also had early satiety with nausea and vomiting. He reports he has had 30 lbs unintentional weight loss since the end of March to present date. He states that he had a head cold in early March and a stomach virus right after that and is unsure if those were due to diabetes or related to current presentation. He has never had elevated glucose prior to this that he is aware of and had lab work performed in January of this year for which he was told was normal. He currently denies headache, chest pain, shortness of breath (but notes that he was breathing harder when he first presented to the ED), abdominal pain, nausea, vomiting, fever, chills (present on admission and have resolved), dysuria, diarrhea or constipation. He is healthy without any known medical history other than elevated blood pressure. His paternal grandmother has diabetes diagnosed in her 60's otherwise there are no other family member with history of diabetes. In the ED, the patient was found to have elevated glucose of 369, AG 23, potassium 4.2, ketones 9.24, and ABG which demonstrated metabolic acidosis with partial respiratory compensation: pH 7.16, PCO2 20.2, PO2 113, HCO3 7, SpO2 97 % on FiO2 0.21. He was given potassium IV, IVF, and started on insulin gtt. He was admitted inpatient to ICU for further evaluation and treatment of DKA. Discharge Providers Provider Date of admission: 06/04/19 13:17 Discharge Date: 06/06/19 Consults: 06/04/19 14:55 Consult to Dietitian, Adult Routine Comment: Reason For Exam: new dx dm 06/05/19 00:36 Consult to Dietitian, Adult Routine Comment: Reason For Exam: New onset diabetes Discharge provider: Mark Tam DO Summary Hospital Course Discharge Diagnosis: 1. Acute diabetic ketoacidosis, likely type 2 DM, present on admission. Resolved. 2. New onset diabetes mellitus 2. History of elevated blood pressure. Hospital Course: Madhu Tatum is a 33-year-old male with a past medical history significant for high blood pressure otherwise healthy who presented to the ED at the discretion of his primary care provider at the [facility] due to elevated blood glucose. He was admitted for DKA with a new diagnosis of diabetes mellitus. He is being discharged home. 1. Acute diabetic ketoacidosis with newly diagnosed diabetes mellitus likely type 2, present on admission. Resolved. -Hemoglobin A1c 11.4%. The patient is a newly diagnosed diabetic. Likely type 2 DM, however abrupt onset and presenting with DKA is unusual for type II. C- peptide level is pending for further evaluation of possible type I. Consider outpatient DRE-65 Abs. -Initial blood glucose 369. Serum ketones 9.24. Anion Gap 23. Potassium 3.1. ABG which demonstrated metabolic acidosis with partial respiratory compensation: pH 7.16, PCO2 20.2, PO2 113, HCO3 7, SpO2 97 % on FiO2 0.21. -Received potassium chloride 20 mEq, 1 L NS and started on IVF, and started on insulin gtt at 0.1 units/kg in ED. -Chest x-ray did not demonstrate any acute cardiopulmonary process. Respiratory viral PCR negative. Urinalysis was negative for infection. -Patient was started on insulin gtt and his anion gap closed quickly, he was transitioned to basal insulin with Lantus. Discharged on Lantus 20 Units nightly and metformin 1000 mg BID. He plans to follow up at the [facility], referral also provided to [facility] for follow up as outpatient. -Counseled patient regarding insulin and glucometer use. -Consulted dietitian and we appreciate her time and recommendations. Recommend outpatient Diabetic Self Management Education (DSME). -Ordered C-peptide which is a send out and pending. -Discussed diabetes mellitus in detail and provided education regarding management of the disease, diabetic diet and nutrition, hypoglycemia and hypoglycemic emergencies, and DKA. 2. History of elevated blood pressure. -Patient reports history of elevated blood pressure likely pre-hypertension versus hypertension that has been controlled with lifestyle modification including diet and exercise. -Patient's blood pressures were normal upon discharge without medications. Time Spent with Patient Time spent: Greater than 30 minutes Exam Vital Signs (past 8 hours): - 06/06/19 08:00 Temperature 98.8 F Pulse Rate 81 Respiratory Rate 18 Blood Pressure 117/71 Pulse Oximetry 98 Oxygen Delivery Method Room Air Oxygen Flow Rate 0 Narrative Exam Narrative: GENERAL APPEARANCE: Well developed, well nourished, in no acute distress. SKIN: Inspection of the skin reveals no rashes, ulcerations or petechiae. HEENT: The sclerae were anicteric and conjunctivae were pink and moist. Extraocular movements were intact and pupils were equal, round with normal accommodation. External inspection of the ears and nose showed no scars, lesions, or masses. Lips, teeth, and gums showed normal mucosa. The oral mucosa, hard and soft palate, tongue and posterior pharynx were unremarkable. NECK: Supple and symmetric. There was no thyroid enlargement, and no tenderness, or masses were felt. CHEST: Normal AP diameter and normal contour without any kyphoscoliosis. LUNGS: Auscultation of the lungs revealed no wheezes, rhonchi, or rales. CARDIOVASCULAR: There was a regular rate and rhythm without any murmurs, ga llops, rubs. Peripheral pulses were 2+ and symmetric. ABDOMEN: Soft and nontender with normal bowel sounds. No ascites was noted. MUSCULOSKELETAL: There was no tenderness or effusions noted. Muscle strength and tone were normal. EXTREMITIES: No cyanosis, clubbing or edema. NEUROLOGIC: Alert and oriented x 3. Normal affect. Strength is +5/5 in the Upper Extremities and Lower Extremities Bilaterally. Sensation to touch was normal. Objective Labs Result Diagrams: 06/05/19 04:40 06/06/19 07:50 Labs: Laboratory Results - last 24 hr 06/05/19 06/06/19 06/06/19 18:45 07:50 07:50 Sodium 130 L 135 L Potassium 2.9 L 2.8 L Chloride 98 102 Carbon Dioxide 19 L 20 L BUN 8 L 6 L Creatinine 0.80 0.60 L Estimated GFR > 60.0 > 60.0 BUN/Creatinine Ratio 10.0 10.0 Glucose 276 H 211 H Calcium 8.8 8.9 Magnesium 2.0 Discharge Plan Discharge Plan Patient Disposition: Home Discharge comment: You are being discharged home. You have diabetes mellitus likely type 2 (decreased insulin production and insulin resistance). You have a test pending called C-peptide which will help to establish what type of diabetes you have and [facility] [employer] [facility] will have to follow-up on this test. You have been prescribed Lantus 20 units daily at bedtime and metformin 1000 mg twice daily. Metformin may initially cause GI upset so it is best taken with food and potentially diarrhea which is self-limiting and should resolve after 1- 2 weeks (if the diarrhea does not resolve inform your physician). Please try to eat a diet low and consistent and carbohydrate. Remember the hand rule: closed fist=lean meats, open hand=vegetables (green leafy and if you're still hungry eat more vegetables), half the size of your palm=carbohydrates (good carbs) and fat (1 serving a day). You have been prescribed a glucose monitoring kit with glucometer, test strips and lancets to measure your blood glucose 4 times daily (1 fasting measurement and three measurements 2 hours after each meal breakfast, lunch and dinner). Please keep a blood glucose log and take this to all of your doctors appointments. You may also find it beneficial to keep a food journal. Highly recommend the book: The Diabetic Solution written by: Mark Forrest MD which discusses controlling diabetes with diet alone. Please follow-up with your primary care physician at the [facility] within the next 3-5 days regarding your hospitalization and diabetic management. Will need your feet checked twice a year and your eyes checked at least once a year. Discharge orders & Medications Prescriptions: New Lantus Solostar U-100 Insulin 100 unit/mL (3 mL) Insulin Pen 20 unit subcut BEDTIME 30 Days Qty: 6 RF: 0 metformin 1,000 mg tablet 1,000 mg PO BID 30 Days Qty: 60 RF: 0 glucose 4 gram tablet,chewable 4 gram PO Q15M PRN (Reason: hypoglycemia) 30 Days Qty: 30 RF: 0 (DME) FreeStyle Lite Strips Strip See Rx Instructions .ROUTE .MEDSUPPLY Qty: 150 RF: 0 (DME) blood-glucose meter [FreeStyle Lite Meter] Kit See Rx Instructions .ROUTE .MEDSUPPLY Qty: 1 RF: 0 (DME) lancets Misc See Rx Instructions .ROUTE .MEDSUPPLY Qty: 50 RF: 0 alcohol swabs [Alcohol Wipes] Pads, Medicated 1 pad TOP QID 30 Days Qty: 100 RF: 0 (DME) pen needle, diabetic 32 gauge x 5/32 needle See Rx Instructions .ROUTE .MEDSUPPLY Qty: 30 RF: 0 No Action No Known Home Medications RF: 0 Follow up/Referrals: Jeet Baptiste MD [Physician] - (New diagnosis of DM, C-peptide level pending. Unclear if type I or II currently.) Discharge Health Status Health Concerns: New diagnosis of DM Diet/Activity/Treatments Diet: Diet as Tolerated and Carb-consistent/Diabetic Activity: As tolerated Visit Report/Discharge Packet Instructions: Complications of Type 2 Diabetes, DI for Diabetes Type 2, Diabetes and Alcohol: Caution When Mixing, Metformin (By mouth), Insulin Glargine (By injection)
--- NOTE | 2019-06-06 11:16 | CM.DPC ---
DCP Cont: Discussed patient during team rounds this morning. Hospitalist is planning on discharging patient home today, and follow up outpatient at [facility], for they do take his insurance. [facility] today, but will have scripts sent to [facility], for they do take , but will need to make co-payment. Patient has already demonstrated how to give himself insulin as well. P: Patient is discharging home today, and will need to follow up with primary care provider. Karo Schreiber RN/Veterinary Laboratory Technician
--- NOTE | 2019-06-06 13:28 | PC.NURSE ---
pt discharged to home following lots of instruction and demonstration of his own insulin administration, al meds/equipment electronically sent to [facility]- all questions answered to his satisfaction
[2019-06-06 15:28] LABS: C Peptide 0.64 ng/mL (0.80-3.85)
== END 2019-06-06 13:31 | disposition home or self-care (01) | DRG 637 ==
LOC: ED 13:03 → AC 13:19 → ICU 15:54
PROVIDERS: Emergency Medicine; Internal Medicine; Nurse Practitioner Gerontology; Admitting Provider Internal Medicine; Emergency Provider Internal Medicine; Visit Provider Internal Medicine
DX: E11.10 Type 2 diabetes mellitus with ketoacidosis without coma (principal); E43 Unspecified severe protein-calorie malnutrition; Z68.26 Body mass index [BMI] 26.0-26.9, adult
CPT/HCPCS: 36415; 36600; 80048; 80053; 80061; 80069; 81003; 81015; 82009; 82805; 82962; 83036; 83690; 83735; 84145; 84681; 85025; 85610; 85730; 87797; 90471; 90656; 93005; 96361; 96365; 96366; 99284; J3480; Q2038